=== PATIENT | male | born 1940 | race Caucasian/White ===

== ENCOUNTER → 2019-04-09 | Outpatient (CLI) | payer MEDICARE, BC ==
--- NOTE | 2019-04-09 13:03 | RADIOLOGY REPORT (SQ) ---
EXAM DESCRIPTION: KUB COMPLETED DATE/TIME: 04/09/2019 12:52 pm REASON FOR STUDY: [facility] COMPL OF INTRAPERITONEAL DIALYSIS CATHETER, SEQUELA T85.691S [facility] COMPL OF I NTRAPERITONEAL DIALYSIS CATHETER, SE COMPARISON: None. NUMBER OF VIEWS: One view. TECHNIQUE: Supine radiographic image of the abdomen acquired. LIMITATIONS: None. FINDINGS: BOWEL GAS PATTERN: Normal bowel gas pattern. No dilated loops. CALCIFICATIONS: No suspicious calcifications. SOFT TISSUES: No gross mass or suggestion of organomegaly. HARDWARE: A peritoneal dialysis catheter is present. The end of the catheter is coiled and overlies the right ilium. BONES: No acute fracture. No worrisome bone lesions. OTHER: No other significant finding. IMPRESSION: Peritoneal dialysis catheter as described. TECHNICAL DOCUMENTATION: JOB ID: [id number] [employer]- All Rights Reserved Reading location - IP/workstation name: [email or web address]
== END ==
LOC: OD 12:34
PROVIDERS: ATTEND Internal Medicine Nephrology
DX: T85.691S Other mechanical complication of intraperitoneal dialysis catheter, sequela (principal); X58.XXXS Exposure to other specified factors, sequela
CPT/HCPCS: 74018

== ENCOUNTER 2019-05-13 10:31 | Day surgery (SDC) | payer MEDICARE, BC ==
--- NOTE | 2019-05-08 11:31 | RADIOLOGY REPORT (SQ) ---
EXAM DESCRIPTION: CHEST PA/LATERAL COMPLETED DATE/TIME: 05/08/2019 11:18 am REASON FOR STUDY: PRE-OP COMPARISON: None. EXAM PARAMETERS: NUMBER OF VIEWS: two views TECHNIQUE: Digital Frontal and Lateral radiographic views of the chest acquired. RADIATION DOSE: NA LIMITATIONS: none FINDINGS: LUNGS AND PLEURA: There is blunting of both costophrenic angles consistent with small effu sions right greater than left. There is a calcified granuloma in the right base. There is some pleu ral thickening along the right inferolateral chest wall. MEDIASTINUM AND HILAR STRUCTURES: No masses or contour abnormalities. HEART AND VASCULAR STRUCTURES: Heart normal size. No evidence for failure. BONES: No acute findings. HARDWARE: Vascular stent overlies the left axilla. Sternotomy wires are in place. OTHER: No other significant finding. IMPRESSION: Small bilateral pleural effusions. Pleural thickening in the right lateral base. TECHNICAL DOCUMENTATION: JOB ID: [id number] [employer]- All Rights Reserved Reading location - IP/workstation name: [email or web address]
[2019-05-08 12:43] LABS: HEMATOCRIT 32.2 % (37.9-51.0); MEAN CORPUSCULAR HGB CONC 34.2 g/dL (32.0-36.0); MEAN CORPUSCULAR VOLUME 97 fl (80-97); PLATELET COUNT 133 10^3/uL (150-450); RED BLOOD COUNT 3.33 10^6/uL (4.35-5.55); RED CELL DISTRIBUTION WIDTH 14.7 % (11.5-14.0); WHITE BLOOD COUNT 6.7 10^3/uL (4.0-10.5)
[2019-05-08 13:04] LABS: ANION GAP 11 (5-19); BLOOD UREA NITROGEN 40 mg/dL (7-20); CALCIUM 9.3 mg/dL (8.4-10.2); CARBON DIOXIDE 27 mmol/L (22-30); CHLORIDE 104 mmol/L (98-107); GLUCOSE 203 mg/dL (75-110); POTASSIUM 5.1 mmol/L (3.6-5.0)
--- NOTE | 2019-05-08 23:33 | EKG REPORT ---
SEVERITY:- ABNORMAL ECG - SINUS RHYTHM VENTRICULAR PREMATURE COMPLEX BORDERLINE LEFT AXIS DEVIATION REPOL ABNRM SUGGESTS ISCHEMIA, ANT-LAT LEADS : Confirmed by: Nisreen Sneed MD 08-May-2019 23:32:03
[~2019-05-13 10:31] MED LIST: CEFAZOLIN SODIUM 1 GM in DEXTROSE 5%-WATER 50 ML IV PRN; LIDOCAINE 0.5% INJ-PF (5 MG/ML) 50 ML SDV SUBCUT PRN; NORMAL SALINE 1000 ML (RENAL PATIENTS) IV PRN
[2019-05-13] MEDS ORDERED: BACITRACIN INJ 50,000 UNIT VIAL ONE (10:35)
[2019-05-13] MEDS ORDERED: LIDOCAINE 0.5% INJ-PF (5 MG/ML) 50 ML SDV ONE ×2 (10:35→11:38)
[2019-05-13] MEDS ORDERED: HEPARIN SOD (PORCINE) 1,000 UNIT/ML 10 ML VIAL ONE (10:35)
[2019-05-13] MEDS ORDERED: BUPIVACAINE HCL 0.25 % INJ/PF (2.5 MG/1 ML) 30 ML VIAL ONE ×2 (10:35→11:38)
[2019-05-13 11:12] LABS: INTERNATIONAL RATION (INR) 1.03; PROTHROMBIN TIME 13.5 SEC (11.4-15.4)
[2019-05-13 11:13] LABS: PARTIAL THROMBOPLASTIN TIME 42.1 SEC (23.5-35.8)
[2019-05-13] MEDS ORDERED: FENTANYL CITRATE INJ/PF 100 MCG/2 ML AMPUL ONE (12:14)
[2019-05-13] MEDS ORDERED: MIDAZOLAM 2 MG/2 ML INJ ONE (12:14)
[2019-05-13] MEDS ORDERED: PROPOFOL INJ 200 MG/20 ML VIAL IV ONE (12:15)
[2019-05-13] MEDS ORDERED: FENTANYL CITRATE INJ/PF 100 MCG/2 ML AMPUL IV PRN ×3 (13:29)
[2019-05-13] MEDS ORDERED: MEPERIDINE HCL/PF INJ 25 MG/1 ML DISP.SYRIN IV PRN (13:29)
[2019-05-13] MEDS ORDERED: PROMETHAZINE HCL INJ 25 MG/1 ML VIAL IV PRN (13:29)
[2019-05-13] MEDS ORDERED: DIPHENHYDRAMINE HCL 50 MG/ML VIAL IV PRN (13:29)
[2019-05-13] MEDS ORDERED: VANCOMYCIN HCL INJ 1000 MG VIAL ONE (13:36)
[2019-05-13] MEDS ORDERED: GLYCOPYRROLATE 1 MG/5 ML VIAL ONE (15:06)
[2019-05-13] MEDS ORDERED: DEXAMETHASONE SOD PHOSPHATE INJ 4 MG/1 ML VIAL ONE (15:06)
[2019-05-13] MEDS ORDERED: ONDANSETRON HCL INJ/PF 4 MG/2 ML SDV ONE (15:06)
[2019-05-13] MEDS ORDERED: NEOSTIGMINE METHYLSULFATE 10 MG/10 ML VIAL ONE (15:06)
[2019-05-13] MEDS ORDERED: ROCURONIUM BROMIDE INJ 50 MG/5 ML VIAL IV ONE (15:06)
--- NOTE | 2019-05-13 15:29 | Discharge Summary ---
Discharge Summary (SDC) - Discharge Final Diagnosis: #1 malfunctioning peritoneal dialysis catheter. 2. End-stage renal disease on dialysis. 3. Coronary artery disease. 4. Hypertension. Date of Surgery: 05/13/19 Discharge Date: 05/13/19 Condition: Good Treatment or Instructions: Discharge home [after recovery per ASU criteria]. Diet , [renal],as tolerated, when fully awake advance as tolerated. Activities within moderation encouraged. Follow up in my office by appointment in about [1 week]. Call for appointment. Leave wounds [covered], [keep clean and dry, until office visit in 1 week]. Hold of on school/work [until evaluation in office]. Meds per med rec. Percocet. May shower [in 48 hrs], [try to keep operated area as dry as possible]. Prescriptions: Oxycodone HCl/Acetaminophen [Percocet 5-325 mg Tablet] 1 tab PO ASDIR PRN #15 tab PRN Reason: Referrals: CHIP STRINGER MD [Primary Care Provider] - Discharge Diet: Other (Comments) - Renal. Respiratory Treatments at Home: Deep Breathing/Coughing Discharge Activity: Activity As Tolerated Report the Following to Your Physician Immediately: Shortness of Breath, Unusual Bleeding
[2019-05-13] MEDS ORDERED: OXYCODONE-ACETAMINOPHEN 5-325 MG TABLET ONE (15:54)
--- NOTE | 2019-05-13 15:58 | Operative Report ---
Operative Report DATE OF SURGERY: 05/13/19 PREOPERATIVE DIAGNOSIS: #1 malfunctioning peritoneal dialysis catheter. 2. En d-stage renal disease on dialysis. 3. Coronary artery disease. 4. Hypertension. POSTOPERATIVE DIAGNOSIS: #1 malfunctioning peritoneal dialysis catheter. 2. End-stage renal disease on dialysis. 3. Coronary artery disease. 4. Hypertension. OPERATION: 1. Laparoscopic evaluation of peritoneal dialysis catheter. 2. Insertion of new peritoneal dialysis catheter laparoscopically. 3. Adhesio lysis. 4. Removal of old peritoneal dialysis catheter. SURGEON: MARYAN DEL TORO LATH HAND: None. ANESTHESIA: GA TISSUE REMOVED OR ALTERED: Not applicable. COMPLICATIONS: None. ESTIMATED BLOOD LOSS: 5 mL. INTRAOPERATIVE FINDINGS: Of an existing peritoneal dialysis catheter. The coil of the catheter over to the right of the abdomen with the exit site above the umbilicus and towards the left. A small bowel loop was tacked up to the peritoneum adjacent to the omental adhesions. Adhesio lysis was done so as to allow this loop of bowel to drop back into the abdomen and to allow the coil of the old catheter to be removed from its omental adhesions the left side of abdomen including the midline was completely clear and the pelvis was clear with a bowel noted. A new peritoneal dialysis catheter was placed on the left in the conventional position, somewhat lower on abdomen. As far as possible from the previous exit site. The previous catheter was removed through a separate incision after securing the new catheter and closing and dressing new sites. PROCEDURE: After obtaining informed consent and going over the procedure with [the patient and his family], he was taken to the operating room, [he was] anesthetized and intubated. The abdomen was prepped and draped in the usual sterile fashion. The old peritoneal dialysis catheter was shielded with a adhesive drape. After the universal timeout, in which it was verified that the patient received IV antibiotic, the procedure commenced. The topographical location for the peritoneal dialysis catheter was sketched by applying it to the anterior abdominal wall. On the right. The reference point was the pubic symphysis the coil of the catheter, just beneath this level. In this way the position for the cuffs and the external catheter exit were ascertained and marked. The catheter was now replaced in antibiotic containing solution. An entry into the abdomen was sketched just to the right of the midline and transversely in the epigastrium. Local anesthesia was infiltrated. A 1 cm, transverse incision was made with a [15 blade scalpel]. This was in the place of a previous cardiac surgery chest tube exit site. Dissection now proceeded to the medial aspect of the right rectus sheath. This was opened and the muscle gently reflected. The posterior rectus sheath and peritoneum were opened between hemostats and entry was gained to the peritoneal cavity. This allowed introduction of a 5 mm laparoscopic port. The abdomen was now insufflated with carbon dioxide up to a maximum pressure of 12 mm of mercury. The camera was inserted and a good view gained of the abdomen. Photographs were taken. The existing catheter was inspected at some length so as to decide whether to re-siting or to insert the new catheter. A loop of small bowel was adherent to the peritoneum adjacent to the omentum, obscuring the view and making it difficult to evaluate the catheter. A a 5 mm port was placed in the left upper abdomen under direct vision. A scissor was placed through this and used to incise the peritoneum adjacent to the loop of small bowel. And this will adhesio lysis was accomplished. Gentle traction was now placed on the existing peritoneal dialysis catheter and the coil came smoothly out of the omentum in which it was stuck. It was now placed towards the pelvis. It is no apparent that the ventral position was actually in the abdomen rather than the pelvis. Based on this it seemed more prudent to insert a new catheter rather lower down. With the left side quite free of adhesions seem to be the best site. Local anesthesia was now infiltrated and an incision made in respect to the curve of the catheter. A 1 cm transverse incision was made at this point and dissection proceeded down to the rectus sheath. This was opened and a Veress needle on a reducing sleeve were were now introduced through the rectus muscle and the manipulated down to about 4 cm inferior to the incision. The peritoneum was now entered and the Veress needle removed. The internal cannula was now placed under direct vision. A swan neck peritoneal dialysis catheter was now placed on a stylette. Great care was taken to keep the orientation in reference to the white line on the catheter. It was now inserted into the peritoneal cavity under direct vision, through the introducer. As the catheter entered the abdomen the stylette was slowly withdrawn allowing it to assume its normal orientation and shape within the peritoneal cavity. Both the stylet and introducer were removed so as to place the internal cuff about 3 cm from the entry point of the peritoneal cavity, and within the rectus sheath. This was verified with respect to the incision. The external curve of the catheter was allowed to form precisely at the level of the incision. Externally the catheter was affixed to a Honorio stylette which was now used to tunnel the catheter in the subcutaneous tissues to its exit site where it was now used to exit the skin. The catheter orientation and position and, particularly the 2 cuffs of the catheter were verified. Once this was done the external portion of the catheter was affixed to a Leur lock adapter and connected to a sterile IV tubing. This allowed introduction of 1 L of heparinized saline into the peritoneal cavity via the catheter. This occurred with brisk and free flow of fluid into the peritoneal cavity. Once the entire liter had been infused, the bag was now placed beneath the level of the patient and very satisfactory outflow was observed. With this in place, the camera and the catheter were removed and abdomen desufflated. The subcutaneous tissue in each incision was closed with interrupted 3-0 PDS. The skin in each incision was closed using interrupted and continuous sutures of 4-0 Monocryl. Once about 600 mils of the Infusaid had been passively removed from the abdomen, the catheter was flushed with 10 mL of heparinized solution and capped. The bio a patch was applied at the exit site. Benzoin was applied and Steri-Strips used to reinforce each of the wounds. It was also used to help anchor the Biopatch. It was also used to anchor the main catheter so that any external pressure would not dislodge the catheter. Dry gauze and tape applied. Local anesthesia was infiltrated and a transverse incision made just superior to the palpable subcutaneous area of the old catheter. Dissection then proceeded to the subcutaneous tissues to the catheter. The cuff rent readily was apparent and the internal portion of the catheter completely removed by traction. It came out easily. Retrograde tension was now placed on the catheter and the cuff dissected away from the subcutaneous tissues and the catheter transected. This wound was now closed with interrupted 3-0 PDS. The exit of the old catheter was now removed. Local anesthesia infiltrated around the skin and subcutaneous tissues. Hemostat used to dissect the cuff away from the surrounding tissues. The catheter removed and discarded. A dry gauze placed over the exit site. And the procedure concluded.
[2019-05-13] MEDS ORDERED: OXYCODONE-ACETAMINOPHEN 5-325 MG TABLET PO ONE (16:30)
[2019-05-13 17:06] VITALS: BP 168/80
== END 2019-05-13 17:05 | disposition home or self-care (01) ==
LOC: OROUT 10:31
PROVIDERS: ATTEND Surgery
DX: I12.0 Hypertensive chronic kidney disease with stage 5 chronic kidney disease or end stage renal disease (principal); N18.6 End stage renal disease; Z99.2 Dependence on renal dialysis; I25.10 Atherosclerotic heart disease of native coronary artery without angina pectoris; E03.9 Hypothyroidism, unspecified; E78.00 Pure hypercholesterolemia, unspecified; Z95.1 Presence of aortocoronary bypass graft; Z79.82 Long term (current) use of aspirin; Z79.899 Other long term (current) drug therapy; Z87.891 Personal history of nicotine dependence; Z79.02 Long term (current) use of antithrombotics/antiplatelets
CPT/HCPCS: 93005; 36415 ×2; 84132; 85027; 85610; 85730; 80048; 71046; 93010; 49324; 49422; J2250; J3490 ×4; J0690; J1100; J3010; J1644; J2710; A9270; J2405; J7060; J2704; J3370; J1642

== ENCOUNTER 2019-05-18 11:42 | Emergency (ER) | payer MEDICARE, BC ==
--- NOTE | 2019-05-18 11:57 | ER Document Report ---
ED Medical Screen (RME) - General Chief Complaint: Dialysis Catheter Problem Stated Complaint: LOWER ABDOMINAL BLEEDING Time Seen by Provider: 05/18/19 11:54 Primary Care Provider: CHIP STRINGER MD [Primary Care Provider] - Follow up as needed Notes: 78-year-old male presented to ED for complaint of continued bleeding from his PD catheter. He states Dr. Peraza inserted the catheter on Monday. He states that daily he has had to change the dressing due to the bleeding but is not been near as bad as it is today. There was very large clots noted all around the site his dressing was completely saturated his shirt and his bridges were also saturated. He states he had changed the dressing just before coming to the hospital. All the dressings were removed and it is a slow trickle bleeding at this time. Blood work will be ordered and he will be examined by another provider and then treated accordingly. I have greeted and performed a rapid initial assessment of this patient. A comprehensive ED assessment and evaluation of the patient, analysis of test results and completion of medical decision making process will be conducted by an additional ED providers. TRAVEL OUTSIDE OF THE [place] IN LAST 30 DAYS: No - Related Data Allergies/Adverse Reactions: No Known Allergies Allergy (Unverified 05/08/19 15:40) Past Medical History - Past Medical History Cardiac Medical History: Reports: Hx Coronary Artery Disease - CABG x5 1992, Hx Hypertension Denies: Hx Heart Attack Pulmonary Medical History: Denies: Hx Asthma, Hx Bronchitis, Hx COPD, Hx Pneumonia Neurological Medical History: Denies: Hx Cerebrovascular Accident, Hx Seizures Musculoskeltal Medical History: Denies Hx Arthritis - Immunizations Hx Diphtheria, Pertussis, Tetanus Vaccination: Yes Doctor's Discharge - Discharge Referrals: CHIP STRINGER MD [Primary Care Provider] - Follow up as needed
[2019-05-18 12:44] LABS: ABSOLUTE EOSINOPHILS # (AUTO) 0.1 10^3/uL (0.0-0.6); ABSOLUTE LYMPHOCYTES (AUTO) 0.5 10^3/uL (0.5-4.7); ABSOLUTE MONOCYTES (AUTO) 0.6 10^3/uL (0.1-1.4); ABSOLUTE NEUT (AUTO) 5.1 10^3/uL (1.7-8.2); BASOPHILS % (AUTO) 0.6 % (0-2); EOSINOPHILS % (AUTO) 2.1 % (0-6); HEMATOCRIT 29.4 % (37.9-51.0); LYMPHOCYTES % (AUTO) 7.3 % (13-45); MEAN CORPUSCULAR HEMOGLOBIN 33.2 pg (27.0-33.4); MEAN CORPUSCULAR HGB CONC 34.2 g/dL (32.0-36.0); MEAN CORPUSCULAR VOLUME 97 fl (80-97); MONOCYTES % (AUTO) 9.4 % (3-13); PLATELET COUNT 132 10^3/uL (150-450); RED BLOOD COUNT 3.02 10^6/uL (4.35-5.55); RED CELL DISTRIBUTION WIDTH 14.6 % (11.5-14.0); SEGMENTED NEUTROPHILS % (AUTO) 80.6 % (42-78); TOTAL CELLS COUNTED % (AUTO) 100 %; WHITE BLOOD COUNT 6.3 10^3/uL (4.0-10.5)
[2019-05-18 12:51] LABS: INTERNATIONAL RATION (INR) 1.09; PROTHROMBIN TIME 14.2 SEC (11.4-15.4)
[2019-05-18 13:06] LABS: ALBUMIN 3.9 g/dL (3.5-5.0); ALKALINE PHOSPHATASE 145 U/L (38-126); ANION GAP 12 (5-19); ASPARTATE AMINO TRANSFERASE 20 U/L (17-59); BILIRUBIN,DIRECT 0.2 mg/dL (0.0-0.4); BILIRUBIN,TOTAL 0.5 mg/dL (0.2-1.3); BLOOD UREA NITROGEN 17 mg/dL (7-20); CALCIUM 9.4 mg/dL (8.4-10.2); CARBON DIOXIDE 30 mmol/L (22-30); CHLORIDE 99 mmol/L (98-107); GLUCOSE 182 mg/dL (75-110); POTASSIUM 4.3 mmol/L (3.6-5.0); TOTAL PROTEIN 6.6 g/dL (6.3-8.2)
--- NOTE | 2019-05-18 15:35 | ER Document Report ---
ED Dialysis Cath/Shunt Problem - General Chief Complaint: Dialysis Catheter Problem Stated Complaint: LOWER ABDOMINAL BLEEDING Time Seen by Provider: 05/18/19 11:54 Primary Care Provider: CHIP STRINGER MD [Primary Care Provider] - Follow up as needed Notes: 78-year-old man presents to the emergency department with a history of bleeding around his peritoneal catheter. The catheter was placed 1 week ago and karla beltran has been having some oozing of blood this morning at 3 AM he awoke with some active hemorrhaging. He denies pain, dizziness or lightheadedness. TRAVEL OUTSIDE OF THE [place] IN LAST 30 DAYS: No - Related Data Allergies/Adverse Reactions: No Known Allergies Allergy (Verified 05/18/19 11:58) Past Medical History - Social History Smoking Status: Never Smoker Chew tobacco use (# tins/day): No Frequency of alcohol use: None Drug Abuse: None Family History: Reviewed & Not Pertinent Patient has suicidal ideation: No Patient has homicidal ideation: No - Past Medical History Cardiac Medical History: Reports: Hx Coronary Artery Disease - CABG x5 1992, Hx Hypertension Denies: Hx Heart Attack Pulmonary Medical History: Denies: Hx Asthma, Hx Bronchitis, Hx COPD, Hx Pneumonia Neurological Medical History: Denies: Hx Cerebrovascular Accident, Hx Seizures Musculoskeletal Medical History: Denies Hx Arthritis - Immunizations Hx Diphtheria, Pertussis, Tetanus Vaccination: Yes Hx Pneumococcal Vaccination: 06/26/17 Review of Systems - Review of Systems Notes: Constitutional: Negative for fever. Cardiovascular: Negative for chest pain. Respiratory: Negative for shortness of breath. Gastrointestinal: + Bleeding around the peritoneal catheter (stopped.) Musculoskeletal: Negative for back pain. Skin: Negative for rash. Neurological: Negative for weakness or numbness. 10 point ROS negative except as marked above and in HPI. Physical Exam - Vital signs Vitals: Temp Pulse Resp BP Pulse Ox 98.0 F 87 18 101/54 L 100 05/18/19 11:54 05/18/19 11:54 05/18/19 11:54 05/18/19 11:54 05/18/19 11:54 - Notes Notes: PHYSICAL EXAMINATION: GENERAL: Responsive 78-year-old in no acute distress HEAD: Atraumatic, normocephalic. EYES: Pupils equal round and reactive to light, extraocular movements intact, sclera anicteric, conjunctiva are normal. ENT: nares patent, oropharynx clear without exudates. Moist mucous membranes. NECK: Normal range of motion, supple without lymphadenopathy LUNGS: Breath sounds clear to auscultation bilaterally and equal. No wheezes rales or rhonchi. HEART: Regular rate and rhythm without murmurs ABDOMEN: Soft, nontender, normoactive bowel sounds. No guarding, no rebound. No masses appreciated. Peritoneal catheter intact with some dried blood noted on the gauze, no active hemorrhaging at this time. EXTREMITIES: Normal range of motion, no pitting or edema. No cyanosis. NEUROLOGICAL: No focal neurological deficits. Moves all extremities spontaneously and on command. PSYCH: Normal mood, normal affect. SKIN: Warm, Dry, normal turgor, no rashes or lesions noted. Course - Re-evaluation Re-evalutation: 05/18/19 16:11 Dr. Peraza, the surgeon who complained the catheter was contacted, he suggested a pressure dressing be placed on the catheter and no stitches placed today. He will see the patient in his office early next week if the bleeding continues and his colleague the surgical this should be contacted as he is hoping to keep the site sterile. I have discussed this plan with the patient and his family and they are agreeable and voiced an understanding follow-up. - Vital Signs Vital signs: Temp Pulse Resp BP Pulse Ox 98.0 F 87 14 127/57 H 100 05/18/19 11:54 05/18/19 11:54 05/18/19 16:01 05/18/19 16:01 05/18/19 16:01 - Laboratory Result Diagrams: 05/18/19 12:30 05/18/19 12:30 Laboratory results interpreted by me: 05/18/19 05/18/19 05/18/19 12:30 12:30 12:30 RBC 3.02 L Hgb 10.0 L Hct 29.4 L RDW 14.6 H Plt Count 132 L Lymph % (Auto) 7.3 L Seg Neutrophils % 80.6 H APTT 39.0 H Creatinine 3.74 H Est GFR ( Amer) 19 L Est GFR (MDRD) Non-Af 16 L Glucose 182 H Alkaline Phosphatase 145 H 05/18/19 16:20 I have reviewed laboratory data and used this information for the treatment decisions regarding the patient. Discharge - Discharge Clinical Impression: Peritoneal dialysis catheter mechanical complication Qualifiers: Encounter type: initial encounter Qualified Code(s): T85.691A - Other mechanical complication of intraperitoneal dialysis catheter, initial encounter Condition: Good Disposition: HOME, SELF-CARE Additional Instructions: Please keep the pressure dressing on place Please follow-up with your appointment on Monday, return to the emergency department if needed. Referrals: CHIP STRINGER MD [Primary Care Provider] - Follow up as needed
[2019-05-18 16:10] VITALS: BP 127/57
== END 2019-05-18 16:53 | disposition home or self-care (01) ==
LOC: ER 11:42
DX: T85.691A Other mechanical complication of intraperitoneal dialysis catheter, initial encounter (principal); I10 Essential (primary) hypertension; Z95.1 Presence of aortocoronary bypass graft
CPT/HCPCS: 36415; 80053; 85025; 85610; 85730; 86850; 86900; 86901; 99283

== ENCOUNTER → 2019-06-21 | Outpatient (CLI) | payer MEDICARE, BC ==
--- NOTE | 2019-06-21 15:23 | RADIOLOGY REPORT (SQ) ---
EXAM DESCRIPTION: KUB COMPLETED DATE/TIME: 06/21/2019 12:32 pm REASON FOR STUDY: [facility] COMPL OF INTRAPERITONEAL DIALYSIS CATHETER, SEQUELA T85.691S [facility] COMPL OF I NTRAPERITONEAL DIALYSIS CATHETER, SE COMPARISON: None. NUMBER OF VIEWS: One view. TECHNIQUE: Supine radiographic image of the abdomen acquired. LIMITATIONS: None. FINDINGS: BOWEL GAS PATTERN: Normal bowel gas pattern. No dilated loops. CALCIFICATIONS: No suspicious calcifications. SOFT TISSUES: No gross mass or suggestion of organomegaly. HARDWARE: A peritoneal dialysis catheter is present. The end of the catheter is coiled in the pelvis . BONES: No acute fracture. No worrisome bone lesions. OTHER: No other significant finding. IMPRESSION: Unremarkable abdomen. No abnormality is seen in the dialysis catheter. TECHNICAL DOCUMENTATION: JOB ID: [id number] [employer]- All Rights Reserved Reading location - IP/workstation name: [email or web address]
== END ==
LOC: DAVITANR 12:20
PROVIDERS: ATTEND Surgery
DX: T85.691S Other mechanical complication of intraperitoneal dialysis catheter, sequela (principal)
CPT/HCPCS: 74018